=== PATIENT | male | born 1970 | race Caucasian/White ===

== ENCOUNTER 2016-05-23 08:42 | Emergency (ER) | payer OTHER ==
[~2016-05-23] VITALS: Ht 177.8 cm; Wt 100.0 kg
[~2016-05-23 08:42] MED LIST: ALAVERT10 M1 PO; CEPHALEXIN500 M1 PO; EPA/GLA1 SGL PO; FLEXERIL 1010 MG/TAB; IMITREX ST6 MG/0.5 M; MAXALT5 MG; MIRAPEX 0.0.125 MG/T; MOBIC 7.5MG7.5 MG PO; MOTRIN 800800 MG/TAB PO; NAPROXEN 3375 MG/TAB; NIASPAN 500MG500 MG PO; PREDNISONE20 MG PO; ROBAXIN 50500 MG/TAB PO; SYNTHROID0.075 MG/T PO; ZOFRAN ODT4 MG PO; ZYRTEC 10MG10 MG PO
[2016-05-23] MEDS ORDERED: SYNTHROID0.05 MG/TA PO (08:50)
[2016-05-23] MEDS ORDERED: MAXALT10 MG (08:50)
[2016-05-23] MEDS ORDERED: ROBAXIN 50500 MG/TAB PO (08:50)
[2016-05-23] MEDS ORDERED: MOBIC15 MG PO (08:50)
[2016-05-23] MEDS ORDERED: INDERAL 10MG10 MG PO (08:50)
[2016-05-23] MEDS ORDERED: DEPAKOTE ER 50500 MG PO (08:51)
[2016-05-23] MEDS ORDERED: ULTRAM 50MG TAB50 MG PO (10:09)
[2016-05-23] MEDS ORDERED: FLEXERIL 1010 MG/TAB PO (10:09)
[2016-05-23 10:30] VITALS: BP 130/89; PULSE 73; TEMP 97.5
== END 2016-05-23 10:31 | disposition home or self-care (01) ==
LOC: COL.ER 08:42
DX: M54.5 Low back pain (principal); M54.89 Other dorsalgia; G89.29 Other chronic pain; M62.830 Muscle spasm of back
CPT/HCPCS: J1885

== ENCOUNTER 2016-08-08 00:07 | Emergency (ER) | payer OTHER ==
[~2016-08-08] VITALS: Ht 177.8 cm; Wt 102.3 kg
[~2016-08-08 00:07] MED LIST changes: +DEPAKOTE ER 50500 MG PO; +FLEXERIL 1010 MG/TAB PO; +INDERAL 10MG10 MG PO; +MAXALT10 MG; +MOBIC15 MG PO; +SYNTHROID0.05 MG/TA PO; +ULTRAM 50MG TAB50 MG PO
[2016-08-08 00:10] VITALS: TEMP 97.9
[2016-08-08 01:05] LABS: BASO # 0.1 (0.0-0.2); BASO % 1.2 % (0.0-2.0); EOS # 0.5 (0.0-0.7); EOS % 8.3 % (0-4.0); GRAN # 3.3 (1.4-6.5); GRAN % 51.6 % (42.2-75.2); HEMATOCRIT 39.7 % (42.0-52.0); HEMOGLOBIN 14.5 g/dl (13.5-18.0); LYMPH # 2.1 (1.2-3.4); LYMPH % 31.7 % (20.0-51.0); MEAN CELL VOLUME 86 fl (80.0-100.0); MEAN CORPUSCULAR HEMOGLOBIN 32 pg (27.0-31.0); MEAN CORPUSCULAR HGB CONC 37 g/dl (33.0-37.0); MEAN PLATELET VOLUME 10.4 fl (7.4-10.4); MONO # 0.4 (0.1-0.6); PLATELET COUNT 207 K/mm3 (130-400); REDCELL DISTRIBUTION WIDTH-CV 13.8 % (11.5-14.5); WHITE BLOOD COUNT 6.5 K/mm3 (4.8-10.8)
[2016-08-08 01:18] LABS: ADJUSTED CALCIUM 9.2 mg/dL (8.4-10.2); ALBUMIN 3.9 gm/dL (3.5-5.0); BILIRUBIN,TOTAL 0.6 mg/dL (0.0-1.0); CALCIUM 9.1 mg/dL (8.4-10.2); CREATININE, serum 1.5 mg/dL (0.66-1.25); POTASSIUM 4.1 mmol/L (3.4-5.0); TOTAL PROTEIN 7.1 gm/dL (6.4-8.2)
[2016-08-08 01:51] LABS: PH 6 (5-8); SQUAMOUS EPITHELIAL None Seen /hpf; URINE APPEARANCE Clear; URINE BACTERIA None Seen /hpf; URINE BILIRUBIN Negative (NEGATIVE); URINE BLOOD Negative (NEGATIVE); URINE COLOR Yellow; URINE GLUCOSE Negative (NEGATIVE); URINE KETONE Negative (NEGATIVE); URINE RBC 0-2 /hpf; URINE UROBILINOGEN Negative (NEGATIVE); URINE WBC None Seen /hpf
[2016-08-08] MEDS ORDERED: PREDNISONE20 MG PO (02:00)
[2016-08-08] MEDS ORDERED: NORCO 325 MG-51 TAB PO (02:00)
[2016-08-08] MEDS ORDERED: VOLTAREN 75 DR75 MG PO (02:00)
[2016-08-08 02:15] VITALS: BP 112/87; PULSE 68
== END 2016-08-08 02:20 | disposition home or self-care (01) ==
LOC: COL.ER 00:07
PROVIDERS: Emergency Medicine
DX: M54.5 Low back pain (principal); G89.29 Other chronic pain; M62.830 Muscle spasm of back; E03.9 Hypothyroidism, unspecified; G43.909 Migraine, unspecified, not intractable, without status migrainosus
CPT/HCPCS: J1885; J2765; J3010; J7040

== ENCOUNTER 2018-11-30 09:03 | Inpatient (IN) | payer OTHER ==
[~2018-11-30] VITALS: Ht 177.8 cm; Wt 103.0 kg
[2018-11-30] VITALS (16 sets, daily range): BP systolic 92–153; BP diastolic 56–107; PULSE 55–73; TEMP 98–98.6
[~2018-11-30 09:03] MED LIST changes: -MAXALT10 MG; +MAXALT10 MG PO; +NORCO 325 MG-51 TAB PO; +VOLTAREN 75 DR75 MG PO
[2018-11-30 09:29] LABS: BASO # 0.1 (0.0-0.2); EOS # 0.7 (0.0-0.7); EOS % 9.3 % (0-4.0); GRAN # 3.5 (1.4-6.5); GRAN % 48.3 % (42.2-75.2); HEMATOCRIT 45.8 % (42.0-52.0); HEMOGLOBIN 15.8 g/dl (13.5-18.0); LYMPH # 2.4 (1.2-3.4); MEAN CELL VOLUME 86 fl (80.0-100.0); MEAN CORPUSCULAR HEMOGLOBIN 30 pg (27.0-31.0); MEAN CORPUSCULAR HGB CONC 35 g/dl (33.0-37.0); MONO # 0.5 (0.1-0.6); MONO % 7.4 % (1.7-9.3); PLATELET COUNT 248 K/mm3 (130-400); RED BLOOD COUNT 5.35 M/mm3 (4.20-5.60); REDCELL DISTRIBUTION WIDTH-CV 13.3 % (11.5-14.5)
[2018-11-30 09:35] LABS: INR 0.9 (0.8-3.0); PROTHROMBIN TIME 10.1 SECONDS (9.7-12.8)
[2018-11-30 09:41] LABS: ALANINE AMINOTRANSFERASE 38 U/L (21-72); ALBUMIN 4.5 gm/dL (3.5-5.0); ALKALINE PHOSPHATASE 74 U/L (50-136); ANION GAP 11 mmol/L (7-16); AST,SGOT 33 U/L (15-37); BILIRUBIN,TOTAL 0.3 mg/dL (0.0-1.0); BLOOD UREA NITROGEN 18 mg/dL (9-20); CALCIUM 9.9 mg/dL (8.4-10.2); CARBON DIOXIDE 23 mmol/L (22-30); CHLORIDE 107 mmol/L (98-107); CREATININE, serum 1.44 (0.66-1.25); GLUCOSE 134 mg/dL (74-106); LIPASE 67 U/L (23-300); POTASSIUM 4.5 mmol/L (3.4-5.0); SODIUM 141 mmol/L (137-145); TOTAL PROTEIN 7.8 gm/dL (6.4-8.2)
--- NOTE | 2018-11-30 09:50 | NUR ---
PT TRANSFERRED DIRECTLY FROM ER TO [facility] [employer] [facility] FOR EMERGENT STEMI. H&P NOT YET DICTATED AT TIME OF PROCEDURE DUE TO EMERGENT NATURE OF CASE. SEE MERGE DOCUMENTATION FOR MEDICATION ADMINSTRATION TIMES AND INTRA/POST PROCEDURE SEDATION ASSESSMENTS.
[2018-11-30 09:53] LABS: D-DIMER < 200.00 ng/mLDDu (200-230)
[2018-11-30 09:59] LABS: C-REACTIVE PROTEIN < 0.5 mg/dL (0.0-0.9)
[2018-11-30 10:38] LABS: TROPONIN-I < 0.012 ng/mL (0.000-0.035)
--- NOTE | 2018-11-30 11:50 | NUR ---
Pt admitted to ICU bed 5 at this time from [facility]. Pt arrived via stretcher and was placed on library monitor. Vitals stable at this time. Pt denies pain or any other discomfort. Temporary pacemaker settings confirmed with lab[facility] hide house ANDRADE Stokes to be rate of 45, output of 4, and sensitivity of 2. Bed in low et locked position, call light within reach, will continue to monitor.
--- NOTE | 2018-11-30 12:00 | NUR ---
R radial cath site clean, dry, et intact with no drainage or hematoma present.
--- NOTE | 2018-11-30 15:15 | NUR ---
3 additional mLs of air removed from TR band at this time. R radial cath site clean, dry, et intact with no drainage or hematoma noted.
--- NOTE | 2018-11-30 15:45 | NUR ---
R radial cath site clean, dry, et intact with no drainage or hematoma. Final 2 mL of air removed from TR band at this time. Will continue to monitor closely for drainage or hematoma development.
--- NOTE | 2018-11-30 16:00 | NUR ---
Shift reassessment complete at this time. No changes from previous admission assessment. Vitals stable at this time. R radial cath site et R femoral temporary pacemaker site both clean, dry, et intact with drainage or hematoma present. Pulses present and equally bilaterally. Pt reports L shoulder pain that is related to a previous injury. Will administer PRN Tylenol, see eMAR for documentation. Pt denies any other complaints or concerns at this time. Bed in low et locked position, call light within reach, will continue to monitor.
--- NOTE | 2018-11-30 18:55 | NUR ---
RECEIVED REPORT FROM ANDRADE ANTOINE. PT LYING IN BED IN REVERSE TRENDE[place]BORG. VSS. TEMP PACEMAKER IN PLACE. NOTED OCCASSIONAL PACES WHEN HR IS IN THE 70s. DECREASED SENSITIVITY TO 0.4. VSS. FAMILY AT BEDSIDE. CALL LIGHT WITHIN REACH. AMIODARONE AT 5MG/HR. PT ON RA. URINAL WITHIN REACH.
--- NOTE | 2018-11-30 19:21 | NUR ---
Bedside report given to Gilberto Card.
--- NOTE | 2018-11-30 19:38 | NUR ---
DR CAMPOS NOTIFIED OF CHANGE TO SENSISTIVITY ON TEMP PACEMAKER. PHYSICIAN STATES THAT IS FINE LONG HIS HEART RATE IS MAINTAINING ABOVE 45. PHYSICIANS STATES POC TO DC TEMP PACEMAKER IN AM. PT NOTIFIED OF POC AND WILL NEED TO REMAIN FLAT AND NOT USE HIS RLE TILL THEN, VERBALIZED UNDERSTANDING.
--- NOTE | 2018-11-30 19:44 | NUR ---
SPOKE WTIH DR FONG ABOUT PT'S C/O SHOULDER AND BACK PAIN, NEW ORDERS. PHYSICIAN STATES PT CAN HAVE ONE DOSE OF IV BENADRYL TONIGHT IF HE NEEDS IT AT BEDTIME. PT REQUESTS PAIN MEDICATION, SEE MAR FOR ADMINISTRATION. PT DENIES ANY CP. PT STATES IT IS MORE HIS BACK AND SHOULDERS.
[2018-11-30] MEDS ORDERED: MULTIVITAMIN SEN PO (20:21)
[2018-11-30] MEDS ORDERED: SYNTHROID0.075 MG/T PO (20:26)
[2018-11-30] MEDS ORDERED: MOTRIN 200200 MG/TAB PO (20:27)
[2018-11-30] MEDS ORDERED: TOPAMAX 100MG100 M1 PO (20:29)
[2018-11-30] MEDS ORDERED: MOBIC15 MG PO (20:30)
[2018-11-30] MEDS ORDERED: ZYRTEC 10MG10 MG PO (20:32)
--- NOTE | 2018-11-30 21:00 | NUR ---
PT EDUCATED ON BENADRYL ADMINISTRATION, VERBALIZED UNDERSTANDING.
[2018-12-01] VITALS (9 sets, daily range): BP systolic 97–126; BP diastolic 56–80; PULSE 55–76; TEMP 97.4–99.4; O2SAT 98
--- NOTE | 2018-12-01 00:15 | NUR ---
PT C/O PAIN 09/02 TO LEFT SHOULDER AND RADIATES DOWN INTO LOWER BACK. WARM PACK PROVIDED AND PAIN MEDICATION GIVEN PER ORDERS, SEE MAR. CALL LIGHT WITHIN REACH. VSS. DENIES ANY FURTHER NEEDS AT THIS TIME.
--- NOTE | 2018-12-01 05:00 | NUR ---
EDUCATED PT ON VOIDING SO MUCH FOR SHIFT. PT VERBALIZED UNDERSTANDING BUT STATES "I AM JUST DRY BUT I WILL TRY." URINAL GIVEN TO PT. AFTE FIVE MINUTES, PT WAS SUCCESSFUL, SEE I&O FLOWSHEET. CALL LIGHT WITHIN REACH. VSS. ICE WATER PROVIDED. DENIES NEEDING PAIN MEDICATION AT THIS TIME.
--- NOTE | 2018-12-01 06:20 | NUR ---
PT REQUEST PAIN MEDICATION, SEE MAR. C/O PAIN 09/02 IN BACK. PT ASSISTED TO BRUSH TEETH AND USE PERSONAL BABY WIPES AND PUT ON DEODORANT AT THIS TIME.
[2018-12-01 06:29] LABS: CALCIUM 8.9 mg/dL (8.4-10.2); CREATININE, serum 1.61 (0.66-1.25); POTASSIUM 4.3 mmol/L (3.4-5.0)
--- NOTE | 2018-12-01 08:00 | NUR ---
Shift assessment complete at this time. Plan of care reviewed at bedside with patient. Additional time taken to address any other needs or concerns. Vitals stable at this time. Temporary pacemaker removed this morning at [address] Dahl. Pt reports moderate pain in lower back, will administer PRN medication after attending physician rounds. Pt states pain is tolerable at this moment. Pt denies any other complaints or concerns. Bed in low, et locked position, call light within reach.
--- NOTE | 2018-12-01 09:17 | NUR ---
KE linder attended clinical rounds with the team. The patient is to move out of ICU to the floor today, 12/01. After rounds KE linder met with the patient to discuss a discharge plan. The patient lives with his family in [place]. The patient has a CPAP and reports he does not use it. The patient's does not have a PCP but states he needs to go to the [facility] to set one up. Patient receives medications from [facility]. The patient does not have advanced directives in the EMR and was not interested in a DPOA-HC form. The patient plans to return home upon discharge with family providing transportation. There are no additional needs at this time.
[2018-12-01 11:43] LABS: CHOLESTEROL RISK RATIO 9.2
--- NOTE | 2018-12-01 13:39 | NUR ---
Pt up to room 305, A&O, independent in room. Home meds, allergies and pharmacy completed. Pt c/o chronic shoulder pain, received PRN pain medication just prior to arrival to floor. Pt denies dizziness, SOB, chest pain, N/V/D. Pt states he doesn't have much of appetite but does feel "much better than yesterday". Lung sounds clear, heart RRR. No other concerns voiced at this time. Call light within reach.
--- NOTE | 2018-12-01 14:34 | NUR ---
Pt laying in bed. Denies shoulder pain at this time. Fluids running into LAC IV with no complications.
--- NOTE | 2018-12-01 16:00 | NUR ---
Tele called in regards to patients leads. This nurse put on new lead stickers. Patient sitting on bench at bedside reading, denies chest pain, dizziness, palpitations.
--- NOTE | 2018-12-01 18:32 | NUR ---
Tele called about parameters on patient. This nurse contacted VILMA Irwin, verbal order for 45-120 parameters. Tele aware of parameters.
--- NOTE | 2018-12-01 20:45 | NUR ---
Patient resting in bed, family at bedside. Patient complains of nausea, zofran given. Radial site band aid, clean dry and intact, no bruising noted. Femoral site dressing also clean dry and intact, area soft to the touch. Patient has IV fluids running at this time. Chronic shoulder pain noted.
[2018-12-02 03:52] VITALS: BP 99/64; PULSE 60; TEMP 98.4
--- NOTE | 2018-12-02 05:18 | NUR ---
Patient has reported having trouble resting this shift due to chronic shoulder pain. Hydrocodone 5mg has been relieving pain. Patient has been resting in bed, watching television or up in room. Patient has been able to tolerate small amounts of food and drink. No nausea reported.
[2018-12-02 06:10] LABS: BASO % 0.3 % (0.0-2.0); EOS # 0.3 (0.0-0.7); EOS % 2.6 % (0-4.0); GRAN # 6.4 (1.4-6.5); GRAN % 64.9 % (42.2-75.2); HEMATOCRIT 40.2 % (42.0-52.0); LYMPH % 20.2 % (20.0-51.0); MEAN CELL VOLUME 88 fl (80.0-100.0); MEAN CORPUSCULAR HEMOGLOBIN 29 pg (27.0-31.0); MEAN CORPUSCULAR HGB CONC 33 g/dl (33.0-37.0); MEAN PLATELET VOLUME 10.5 fl (7.4-10.4); MONO # 1.1 (0.1-0.6); MONO % 11.4 % (1.7-9.3); PLATELET COUNT 171 K/mm3 (130-400); RED BLOOD COUNT 4.56 M/mm3 (4.20-5.60); REDCELL DISTRIBUTION WIDTH-CV 13.8 % (11.5-14.5)
[2018-12-02 06:15] LABS: HEMOGLOBIN 13.1 g/dl (13.5-18.0)
[2018-12-02 06:20] LABS: CALCIUM 8.8 mg/dL (8.4-10.2); CREATININE, serum 1.48 (0.66-1.25)
[2018-12-02 07:03] VITALS: BP 105/65; PULSE 61; TEMP 98.1
--- NOTE | 2018-12-02 07:09 | NUR ---
Agree with assessments and notes-
--- NOTE | 2018-12-02 09:59 | NUR ---
Initial visit; Patient thanked Paint Supervisor for looking in on him and offering God's blessings.
--- NOTE | 2018-12-02 10:11 | NUR ---
Pt assessment completed and charted. Pt sitting on bench at bedside. Pt denies chest pain, dizziness, nausea, SOB, numbness/tingling. Pt c/o intermittent left shoulder pain, rating it 2/10 at this time, denies pain medication. Pt has RAC INT IV that flushes with no complications and LAC INT IV w/ IVF infusing w/ no complications. Pt independent in room, requesting shower. No other concerns voiced. Morning medications administered per MAR.
[2018-12-02] MEDS ORDERED: BRILINTA90 MG PO (10:40)
[2018-12-02] MEDS ORDERED: LIPITOR 40MG TA40 MG PO (10:40)
[2018-12-02] MEDS ORDERED: ASPIRIN E.C. 8181 MG PO (10:40)
[2018-12-02 11:34] VITALS: BP 92/63; PULSE 69; TEMP 98.9
--- NOTE | 2018-12-02 15:12 | NUR ---
pT DISCHARGE INSTRUCTIONS DISCUSSED AND REVIEWED WITH PATIENT WHO VERBALIZED UNDERSTANDING. LAC AND RAC INT IV DC'D WITH NO COMPLICATIONS. ALL QUESTIONS ANSWERED AND NO OTHER CONCERNS VOICED. PT ESCORTED OUT BY THIS NURSE AND FAMILY AT SIDE.
== END 2018-12-02 15:13 | disposition home or self-care (01) | DRG 247 ==
LOC: COL.ER 09:03 → ICU 09:50 → COL.ER 09:54 → ICU 09:54 → MEDICAL 12-01 12:49
PROVIDERS: Emergency Medicine; Hospitalist; Internal Medicine Cardiovascular Disease; ADMIT Student in an Organized Health Care Education/Training Program
PROC: 027034Z Dilation of Coronary Artery, One Artery with Drug-eluting Intraluminal Device, Percutaneous Approach (ICD-10-PCS; principal; 2018-11-30)
PROC: 4A023N7 Measurement of Cardiac Sampling and Pressure, Left Heart, Percutaneous Approach (ICD-10-PCS; 2018-11-30)
PROC: B2101ZZ Fluoroscopy of Single Coronary Artery using Low Osmolar Contrast (ICD-10-PCS; 2018-11-30)
PROC: 5A2204Z Restoration of Cardiac Rhythm, Single (ICD-10-PCS; 2018-11-30)
DX: I21.19 ST elevation (STEMI) myocardial infarction involving other coronary artery of inferior wall (principal); I47.2 Ventricular tachycardia; I44.2 Atrioventricular block, complete; N17.9 Acute kidney failure, unspecified; E03.9 Hypothyroidism, unspecified; E78.1 Pure hyperglyceridemia; G43.909 Migraine, unspecified, not intractable, without status migrainosus; G25.81 Restless legs syndrome; G89.29 Other chronic pain; M25.511 Pain in right shoulder; E66.9 Obesity, unspecified; I12.9 Hypertensive chronic kidney disease with stage 1 through stage 4 chronic kidney disease, or unspecified chronic kidney disease; N18.9 Chronic kidney disease, unspecified; M54.9 Dorsalgia, unspecified; Z90.89 Acquired absence of other organs
CPT/HCPCS: 99223-AI; 99232-AI; 99239; C1725; C1769; C1874; C1887; C1894; C9600; J0282; J1200; J1265; J1644; J2250; J2270; J2405; J2550; J7030; J7060; Q9967

== ENCOUNTER 2019-02-10 14:50 | Outpatient (RCR) | payer OTHER ==
[~2019-02-10 14:50] MED LIST changes: +ASPIRIN E.C. 8181 MG PO; +BRILINTA90 MG PO; +LIPITOR 40MG TA40 MG PO; +MOTRIN 200200 MG/TAB PO; +MULTIVITAMIN SEN PO; +TOPAMAX 100MG100 M1 PO
== END 2019-03-21 | disposition home or self-care (01) ==
LOC: COL.CR
DX: I21.3 ST elevation (STEMI) myocardial infarction of unspecified site (principal)